=== PATIENT | male | born 1995 | race Caucasian/White ===

== ENCOUNTER 2019-03-20 09:12 | Emergency (ER) | payer OTHER ==
[~2019-03-20] VITALS: Ht 182.9 cm; Wt 72.7 kg
[~2019-03-20 09:12] MED LIST: BACTRIM DS1 TAB PO; CEPHALEXIN500 MG OR; MOTRIN800 MG PO; NAPROSYN500 MG PO; NEXIUM40 M1 PO; NO HOME MEDS; PROTONIX40 MG PO
[2019-03-20] MEDS ORDERED: CIPROFLOXACN500 MG PO (11:02)
[2019-03-20] MEDS ORDERED: BACTRIM DS1 TAB PO (11:02)
[2019-03-20 11:05] VITALS: BP 119/74
== END 2019-03-20 11:05 | disposition home or self-care (01) | DRG 603 ==
LOC: ED 09:12
DX: L03.114 Cellulitis of left upper limb (principal); S61.432A Puncture wound without foreign body of left hand, initial encounter; W45.0XXA Nail entering through skin, initial encounter; Y93.E9 Activity, other interior property and clothing maintenance; Y92.009 Unspecified place in unspecified non-institutional (private) residence as the place of occurrence of the external cause